=== PATIENT | female | born 1980 | race Hispanic/Latino ===

== ENCOUNTER 2016-06-05 05:43 | Day surgery (SDC) | payer BC ==
[~2016-06-05 05:43] MED LIST: NACL 0.9% 1000 ML 1,000 ML IV SCH; PEPCID PO NR; VERSED IV NR
[2016-06-05] MEDS ORDERED: NACL BACTERIOSTATIC INFILTRATI ONE (06:38)
[2016-06-05] MEDS ORDERED: DILAUDID ONE ×2 (06:46→09:00)
[2016-06-05] MEDS ORDERED: DIPRIVAN 10 MG/ML IV ONE (06:46)
[2016-06-05] MEDS ORDERED: XYLOCAINE MPF 2% ONE (06:47)
[2016-06-05] MEDS ORDERED: ANCEF/STERILE WATER 2 GM/20 ML IV NR (07:00)
--- NOTE | 2016-06-05 07:08 | Anesthesia Day of Surgery ---
Anesthesia Day of Surgery - Day of Surgery Patient Examined: Yes Patient H&P Reviewed: Yes Patient is NPO: Yes Cardiac Clearance: No Pulmonary Clearance: No
[2016-06-05] MEDS ORDERED: SUBLIMAZE IV PRN (07:09)
--- NOTE | 2016-06-05 07:09 | Anesthesia Consultation ---
Anesthesia Consult and Med Hx Date of service: 06/05/16 - Airway Anesthetic Teeth Evaluation: Poor (loose lower) ROM Head & Neck: Inadequate Mental/Hyoid Distance: Inadequate Mallampati Class: Class II Intubation Access Assessment: Probably Good - Pulmonary Exam CTA: Yes (clear) - Cardiac Exam Cardiac Exam: RRR - Pre-Operative Health Status ASA Pre-Surgery Classification: ASA2 Proposed Anesthetic Plan: General - Pulmonary Hx Smoking: Yes (CIGARETTES 5 CIGS PD X 21 YRS) Hx Sleep Apnea: No - Other Systems Hx Cancer: No
[2016-06-05] MEDS ORDERED: MARCAINE 0.25% INFILTRATI ONE ×2 (07:14→07:56)
[2016-06-05] MEDS ORDERED: XYLOCAINE 1% 20 mL ONE (07:39)
[2016-06-05] MEDS ORDERED: ZOFRAN ONE (07:44)
[2016-06-05] MEDS ORDERED: DECADRON ONE (07:44)
[2016-06-05] MEDS ORDERED: XYLOCAINE 1% 20 mL INFILTRATI ONE (07:56)
[2016-06-05] MEDS ORDERED: NACL 0.9% IR ONE (07:56)
--- NOTE | 2016-06-05 08:41 | Short Stay Summary ---
Short Stay Documentation - History H&P: obtained from office - Allergies and Medications Current Medications: Allergies acetaminophen [From DarSqurlcet-N 100] Allergy (Verified 06/04/16 11:28) Swelling nickel Allergy (Verified 06/05/16 06:38) Hives propoxyphene napsylate [From Darvocet-N 100] Allergy (Verified 06/04/16 11:28) Swelling Home Medications Medication Instructions Recorded Confirmed Last Taken Type ALPRAZolam [Xanax TAB] 0.5 mg PO BID PRN 06/04/16 06/05/16 06/05/16 04:00 History Ibuprofen [Motrin 800 MG tab] 800 mg PO Q8HR PRN #30 tablet 06/05/16 Unknown Rx Active Medications Cefazolin Sodium (Ancef/Sterile Water 2 Gm/20 Ml) 2 gm IV PREOP NR Stop: 06/05/16 23:55 Famotidine (Pepcid) 20 mg PO PREOP NR Stop: 06/05/16 23:59 Last Admin: 06/05/16 06:46 Dose: 20 mg Fentanyl (Sublimaze) 50 mcg IV Q5MIN PRN PRN Reason: Pain , Severe (7-10) Stop: 06/05/16 16:00 Sodium Chloride (Nacl 0.9% 1000 Ml) 1,000 mls @ 100 mls/hr IV DIRECT NEO Last Admin: 06/05/16 06:50 Dose: 100 mls/hr Midazolam HCl (Versed) 2 mg IV PREOP NR Stop: 06/05/16 23:59 Last Admin: 06/05/16 07:14 Dose: 2 mg - Brief post op/procedure progress note Date of procedure: 06/05/16 Pre-op diagnosis: Right breast fibroadenoma Post-op diagnosis: same Procedure: Right breast excisional biopsy of fibroadenoma of the upper outer quadrant Anesthesia: GETA Findings: Known fibroadenoma at the 10:00 position 8 cm from the nipple Surgeon: YAMILETH HOPKINS Estimated blood loss: minimal Pathology: list (fibroadenoma) Specimen disposition: to lab Condition: stable - Disposition Condition at discharge: Good Disposition: DISCHARGED TO HOME OR SELFCARE Short Stay Discharge Plan Activity: other (no heavy lifting) Diet: regular Wound: other (keep incision clean and dry; may shower in 24 hours; no baths, pools or lakes) Follow up with: YAMILETH HOPKINS MD [Staff Physician] - 7 Days Prescriptions: Ibuprofen [Motrin 800 MG tab] 800 mg PO Q8HR PRN #30 tablet PRN Reason: Pain
--- NOTE | 2016-06-05 08:47 | Operative Report ---
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 Anesthesia: Gen. Findings: Known fibroadenoma at the 10 o'clock position 8 cm from the nipple Complications: None Drains: None Disposition: PACU in good condition Indications for operative procedure: This is a 35-year-old premenopausal lady with known right breast fibroadenoma of the upper outer quadrant at 10 o'clock position 8 cm from the nipple. Breast mass was previously biopsied with findings of a fibroadenoma without atypia. Patient was wanting an excisional biopsy given increased pain. Patient wishes to proceed with the above procedure. The procedure in detail: The patient was taken to the operating room and was laid supine. Gen. anesthesia was administered. Ultrasound was used to identify the area of concern. Skin incision was made with a 15 blade knife with dissection taken down to the subcutaneous tissues. The fibroadenoma was noted to be anterior to the pectoralis muscle. The fibroadenoma was dissected free and sent to pathology. Hemostasis was obtained with the Bovie cautery. The subcutaneous tissue were approximated and closed with interrupted 3-0 Vicryl and skin brought together and closed with a running 4-0 Monocryl and skin affix. The patient tolerated surgery very well and she was awakened from anesthesia without any complications and transferred to PACU in good condition.
[2016-06-05] MEDS ORDERED: MOTRIN PO PRN (09:16)
[2016-06-05] MEDS ORDERED: DILAUDID IV PRN (09:17)
[2016-06-05 09:50] VITALS: BP 110/62
--- NOTE | 2016-06-05 11:31 | Post Anesthesia Evaluation ---
- Post Anesthesia Evaluation Patient Participated: No Airway Patent: Yes Stable Respiratory Function: Yes Nausea/Vomiting: No Temp > 96.8F: Yes Pain Manageable: Yes Adequeate Hydration: Yes Anesthesia Complications: No Block Receding Appropriately: No Patient on Ventilator: No
== END 2016-06-05 10:07 | disposition home or self-care (01) ==
LOC: OR 05:43
PROVIDERS: ATTEND Surgery
DX: D24.1 Benign neoplasm of right breast (principal); N60.21 Fibroadenosis of right breast; N60.81 Other benign mammary dysplasias of right breast; F17.210 Nicotine dependence, cigarettes, uncomplicated; Z90.710 Acquired absence of both cervix and uterus; Z80.41 Family history of malignant neoplasm of ovary
CPT/HCPCS: 19120; 88307; J0690; J1100; J1170; J2250; J2405; J2704; J7030; 88305